=== PATIENT | male | born 1950 | race Caucasian/White ===

== ENCOUNTER 2021-11-30 19:00 | Emergency (ER) | payer MEDICARE ==
[2021-11-30] MEDS ORDERED: TORAdol 30 mg Injection IM ONE (19:40)
--- NOTE | 2021-11-30 19:45 | ERPHSYRPT ---
- History of Present Illness Source: patient Exam Limitations: no limitations Patient Subjective Stated Complaint: pt states he was walking on sidewalk and tripped and fell on left knee. Triage Nursing Assessment: pt is alert and oriented, states pain on l knee 11/26. knee is visibly swollen and pt cannot move knee at joint Physician History: 71 yo WM tripped on uneven sidewalk at 14:00 today while walking. Pt landed on his L knee. Pain is moderate to severe and worse w weight bearing. He denies other injuries at this time. Method of Injury: direct blow (Tripped) Occurred: other (14:00 today) Quality: constant Severity of Pain-Max: severe Severity of Pain-Current: moderate Lower Extremities Pain: knee: left Modifying Factors: Improves With: movement Associated Symptoms: none Allergies/Adverse Reactions: No Known Drug Allergies Allergy (Unverified 11/30/21 19:19) Hx Influenza Vaccination/Date Given: Yes Hx Pneumococcal Vaccination/Date Given: Yes Travel Risk - International Travel Have you traveled outside of the country in past 3 weeks: No - Coronavirus Screening Are you exhibiting any of the following symptoms?: No Close contact with a COVID-19 positive Pt in past 14-21 Days: No - Vaccine Status Have you recieved a Covid-19 vaccination: Yes Hogshead Stripper: Moderna - Vaccination Dates Date of 2cond Vaccination (if applicable): unknown - Review of Systems Constitutional: No Symptoms Eyes: No Symptoms Ears, Nose, & Throat: No Symptoms Respiratory: No Symptoms Cardiac: No Symptoms Abdominal/Gastrointestinal: No Symptoms Genitourinary Symptoms: No Symptoms Skin: No Symptoms Psychological: No Symptoms Endocrine: No Symptoms Hematologic/Lymphatic: No Symptoms Immunological/Allergic: No Symptoms - Past Medical History Neurological History: TIA Cardiac History: Coronary Artery Disease, High Cholesterol, Hypertension, Myocardial Infarction ([place]) Respiratory History: No Pertinent History Endocrine Medical History: Diabetes Type II Musculoskeletal History: Osteoarthritis Other Medical History: 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 CAD WITH MULTIPLE STENT PLACEMENTS X 8 PER PATIENT. LEFT SHOULDER REPLACEMENT 2014. RIGHT ARTHROSCOPIC SURGERY >10 YEARS AGO - Past Surgical History Past Surgical History: Yes Other Surgical History: CAD WITH MULTIPLE STENT PLACEMENTS X 8 PER PATIENT. LEFT SHOULDER REPLACEMENT 2014. RIGHT ARTHROSCOPIC SURGERY >10 YEARS AGO - Social History Smoking Status: Former smoker Drug Use: none - Nursing Vital Signs Nursing Vital Signs: Initial Vital Signs Temperature 97.6 F 11/30/21 19:08 Pulse Rate 74 11/30/21 19:08 Respiratory Rate 18 11/30/21 19:08 Blood Pressure 200/119 11/30/21 19:08 O2 Sat by Pulse Oximetry 98 11/30/21 19:08 Pain Scale Pain Intensity 8 Hypertensive - Physical Exam General Appearance: no apparent distress Eyes, Ears, Nose, Throat Exam: normal ENT inspection, TMs normal, pharynx normal, moist mucous membranes Neck Exam: normal inspection, non-tender (C-spine nttp), supple, full range of motion, No Brudzinski, No Kernig's, No meningismus, No carotid bruit Cardiovascular/Respiratory Exam: chest non-tender, normal breath sounds, regular rate/rhythm, heart sounds normal Gastrointestinal/Abdominal Exam: non-tender, soft, no organomegaly Back Exam: normal inspection, normal range of motion, vertebral tenderness (No T or L-spine TTP), No CVA tenderness Hips Exam: bilateral: non-tender, normal inspection, normal range of motion, no evidence of injury Legs Exam: bilateral leg: non-tender, normal inspection, normal range of motion, no evidence of injury Knees Exam: left knee: pain (Marked edema and TTP L pre-patellar area/Good pedal pulse, distal sensation, and capillary return) Ankle Exam: bilateral ankle: non-tender, normal inspection, normal range of motion, no evidence of injury Foot Exam: bilateral foot: non-tender, normal inspection, normal range of motion, no evidence of injury Neuro/Tendon Exam: normal sensation, normal motor functions, normal tendon functions, responds to pain, no evidence tendon injury, No motor deficit, No sensory deficit Mental Status Exam: alert, oriented x 3, cooperative Skin Exam: normal color, warm, dry, No rash SpO2 Interpretation: normal SpO2: 98 O2 Delivery: Room Air - Course Nursing assessment & vital signs reviewed: Yes - Radiology Exams Knee X-ray Interpretation: Teleradiologist Report (No acute fx) Ordered Tests: Active Orders 24 hr Category Date Time Status Benjamin Bandage Application -[facility] STAT Care 11/30/21 20:23 Completed Cold Application STAT Care 11/30/21 19:14 Completed Crutches STAT Care 11/30/21 20:23 Completed KNEE (3 VIEWS) Stat Exams 11/30/21 19:35 Taken Medication Summary Discontinued Medications Generic Name Dose Route Start Last Admin Trade Name Manjit PRN Reason Stop Dose Admin Ketorolac Tromethamine 15 mg 11/30/21 19:40 11/30/21 19:51 Ketorolac Tromethamine 30 Mg/Ml Inj IM 11/30/21 19:41 15 mg STAT ONE Administration Ketorolac Tromethamine Confirm 11/30/21 19:48 Ketorolac Tromethamine 30 Mg/Ml Inj Administered 11/30/21 19:49 Dose 30 mg .ROUTE .STK-MED ONE - Progress Progress Note: 11/30/21 20:26 15mg IM toradol Crutches per nursing Benjamin wrap L knee per nursing/NVI 11/30/21 20:38 Pt's BP elevated but decreasing upon discharge Pt to f/u in ortho clinic on Friday11/30/21 20:39 Counseled pt/family regarding: diagnosis, need for follow-up, rad results - Departure Departure Disposition: Home Clinical Impression: Contusion of knee, left Condition: Stable Critical Care Time: No Referrals: JANAK CARLSON MD [Primary Care Provider] - Follow up/PCP as directed ORTHO - KENYA LAM NP [NON-STAFF PHY W/O PRIVILEGES] - Follow up/PCP as directed Instructions: Knee Pain (DC) Additional Instructions: Ice for 12-24 hours No weight bearing(Use crutches) Continue with home pain meds as needed Follow up in orthopedic clinic on 12/03 8-10:00AM Return to ER as needed
[2021-11-30] MEDS ORDERED: TORAdol 30 mg Injection ONE (19:48)
[2021-11-30 20:14] VITALS: BP 194/108; PULSE 66
[2021-11-30 20:30] VITALS: O2SAT 98
--- NOTE | 2021-11-30 23:25 | XRAY ---
Indication: Pain and swelling following fall. Comparison: None 3 view left knee obtained. Lateral view limited due to suboptimal positioning. Age-related osteopenia, small posterior fabella, tiny round patella bone islands, anterior soft tissue swelling/hematoma, and diffuse scattered vascular calcifications. No other bony, articular, or soft tissue abnormalities. Comment: Preliminary interpretation made by [facility]. No critical discrepancy.
== END 2021-11-30 20:37 | disposition home or self-care (01) ==
LOC: ED 19:00
DX: M25.562 Pain in left knee (principal); S80.02XA Contusion of left knee, initial encounter; W18.30XA Fall on same level, unspecified, initial encounter; Z20.828 Contact with and (suspected) exposure to other viral communicable diseases
CPT/HCPCS: 73562; 96372; 99283; J1885

== ENCOUNTER 2022-08-17 00:03 | Emergency (ER) | payer MEDICARE ==
--- NOTE | 2022-08-17 00:51 | ERPHSYRPT ---
- History of Present Illness Time Seen by Provider: 08/17/22 00:30 Source: patient, family Exam Limitations: no limitations Patient Subjective Stated Complaint: pt's s/o states that he passed out and fell to the floor, was out for a few minutes before he came to, was clammy and diaphoretic upon waking and vomited. Triage Nursing Assessment: pt alert and oriented, answers questions approp. pt back to room per wheelchair and transfers to stretcher per self. steady gait noted. respirations nonlabored. skin warm and dry at this time. lt pupil uma ctive. rt eye prosthesis. bilat upper and lower ext strength equal and wnl. Physician History: This is a 72-year-old white male who is diabetic and had a syncopal episode, p assed out and found on the floor. The spouse heard him fall and found him on the ground after falling. Patient had a brief loss of consciousness. No seizure activity. Denies chest pain and denies shortness of breath. However, he was clammy and diaphoretic. Patient came from home. His spouse provided independent information and drove him to the emergency department where she stated that he started a new medication, Jardiance 2 weeks ago. Ordinarily, the states, the patient has high blood pressure but in the last several days his blood pressure has been significantly lower. He is still taking his antihypertensive medication. Patient has a history of coronary disease having had cardiac stents in place. He has his prosthetic right I. He has a history of hypertension and hyperlipidemia. He currently denies shortness of breath and denies chest pain. Overall, since he started the Jardiance, the patient has not been feeling well per 's report Timing/Duration: today Severity: mild (To moderate) Character of Deficits: none Deficits: no difficulties Baseline/Normal Cognition: alert oriented x 3 Current Cognition: alert oriented x 3 Baseline Gait: walks w/o assistance Associated Symptoms: loss of consciousness (Brief), weakness Allergies/Adverse Reactions: No Known Drug Allergies Allergy (Verified 08/17/22 00:41) Hx Tetanus, Diphtheria Vaccination/Date Given: Yes Hx Influenza Vaccination/Date Given: Yes Hx Pneumococcal Vaccination/Date Given: Yes Immunizations Up to Date: Yes Travel Risk - International Travel Have you traveled outside of the country in past 3 weeks: No - Coronavirus Screening Are you exhibiting any of the following symptoms?: No Close contact with a COVID-19 positive Pt in past 14-21 Days: No - Vaccine Status Have you recieved a Covid-19 vaccination: Yes Home Care Nurse: Moderna - Vaccination Dates Date of 2cond Vaccination (if applicable): unknown - Review of Systems Constitutional: Weakness Eyes: No Symptoms Ears, Nose, & Throat: No Symptoms Respiratory: No Symptoms Cardiac: No Symptoms Abdominal/Gastrointestinal: Vomiting (Once), No Abdominal Pain, No Nausea, No Diarrhea, No Constipation Genitourinary Symptoms: No Symptoms Musculoskeletal: No Symptoms Skin: No Symptoms Neurological: No Symptoms Psychological: No Symptoms Endocrine: No Symptoms Hematologic/Lymphatic: No Symptoms Immunological/Allergic: No Symptoms All Other Systems: Reviewed and Negative - Past Medical History Pertinent Past Medical History: Yes Neurological History: TIA Cardiac History: Coronary Artery Disease, High Cholesterol, Hypertension, Myocardial Infarction ([place]) Respiratory History: No Pertinent History Endocrine Medical History: Diabetes Type II Musculoskeletal History: Osteoarthritis Other Medical History: 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 CAD WITH MULTIPLE STENT PLACEMENTS X 8 PER PATIENT. LEFT SHOULDER REPLACEMENT 2014. RIGHT ARTHROSCOPIC SURGERY >10 YEARS AGO - Past Surgical History Past Surgical History: Yes Gastrointestinal: Cholecystectomy Musculoskeletal: Orthopedic Surgery Other Surgical History: CAD WITH MULTIPLE STENT PLACEMENTS X 8 PER PATIENT. LEFT SHOULDER REPLACEMENT 2014. RIGHT ARTHROSCOPIC SURGERY >10 YEARS AGO. back surgery - Social History Smoking Status: Former smoker Exposure to second hand smoke: No Drug Use: none Patient Lives Alone: No - Nursing Vital Signs Nursing Vital Signs: Initial Vital Signs Temperature 97.8 F 08/17/22 00:12 Pulse Rate 65 08/17/22 00:12 Respiratory Rate 16 08/17/22 00:12 Blood Pressure 141/92 08/17/22 00:12 O2 Sat by Pulse Oximetry 93 L 08/17/22 00:12 Pain Scale Pain Intensity 0 - Velia Coma Scale Best Eye Response (Norman): (4) open spontaneously Best Verbal Response (Norman): (5) oriented Best Motor Response (Velia): (6) obeys commands Norman Total: 15 - Physical Exam General Appearance: no apparent distress, alert, anxiety Eye Exam: left eye: PERRL (Patient has prosthetic right eye), EOMI (Patient has prosthetic right eye), bilateral eye: normal inspection Ears, Nose, Throat Exam: normal ENT inspection, moist mucous membranes Neck Exam: normal inspection, non-tender, supple, full range of motion Respiratory: normal breath sounds, lungs clear, airway intact, No chest tenderness, No respiratory distress Cardiovascular: regular rate/rhythm, normal heart sounds, normal peripheral pulses Gastrointestinal: soft, normal bowel sounds, No tenderness Rectal Exam: not done Back Exam: normal inspection, normal range of motion, No CVA tenderness, No vertebral tenderness Extremity Exam: normal inspection, normal range of motion, pelvis stable Mental Status: alert, oriented x 3, 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 Patient has a prosthetic right eye) Coordination/Gait: normal finger to nose, normal gait, normal cerebellar function Motor/Sensory: no motor deficit, no sensory deficit, no pronator drift Skin Exam: normal color, warm, dry SpO2 Interpretation: borderline oxygenation SpO2: 93 O2 Delivery: Room Air - Course Nursing assessment & vital signs reviewed: Yes EKG Interpreted by Me: RATE (66), Sinus Rhythm, NORMAL AXIS, LAFB, Right Bundle Branch Block, Other (No acute ischemic changes on today's twelve-lead EKG. There is prolonged ID interval. No comparison twelve-lead EKG available) Ordered Tests: Active Orders 24 hr Category Date Time Status Clean Catch Urine Specimen STAT Care 08/17/22 00:51 Active EKG-ER Only STAT Care 08/17/22 00:51 Active IV Insertion STAT Care 08/17/22 00:51 Active POCT Glucose Check STAT Care 08/17/22 00:51 Active Pulse Oximetry (ED) STAT Care 08/17/22 00:51 Active CERVICAL SPINE WO CONTRAST [CT] Stat Exams 08/17/22 00:52 Taken HEAD WITHOUT CONTRAST [CT] Stat Exams 08/17/22 00:52 Taken CBC W DIFF Stat Lab 08/17/22 01:07 Completed CMP Stat Lab 08/17/22 01:07 Completed ETHYL ALCOHOL Stat Lab 08/17/22 01:07 Completed POCT GLUCOSE Stat Lab 08/17/22 00:34 Completed TROPONIN Q4H Lab 08/17/22 01:07 Completed TROPONIN Q4H Lab 08/17/22 05:00 Ordered TROPONIN Q4H Lab 08/17/22 09:00 Ordered TROPONIN Q4H Lab 08/17/22 13:00 Ordered TROPONIN Q4H Lab 08/17/22 17:00 Ordered TROPONIN Q4H Lab 08/17/22 21:00 Ordered UA W/RFX UR CULTURE Stat Lab 08/17/22 01:18 Completed Urine Triage Profile Stat Lab 08/17/22 01:18 Completed Medication Summary Generic Name Dose Route Start Last Admin Trade Name Manjit PRN Reason Stop Dose Admin Sodium Chloride 1,000 mls @ 100 mls/hr 08/17/22 01:00 08/17/22 01:18 Sodium Chloride 0.9% 1000 Ml IV 09/16/22 00:59 100 mls/hr .Q10H JOANIE Administration Lab/Rad Data: Laboratory Result Diagrams 08/17/22 01:07 08/17/22 01:07 Laboratory Results 08/17/22 08/17/22 08/17/22 Range/Units 01:18 01:18 01:07 WBC (4.0-10.5) x10^3/uL RBC (4.1-5.6) x10^6/uL Hgb (12.5-18.0) g/dL Hct (42-50) % MCV (78-100) fL MCH (26-32) pg MCHC (32-36) g/dL RDW (11.5-14.0) % Plt Count (150-450) x10^3/uL MPV (7.5-11.0) fL Gran % (36.0-66.0) % Immature Gran % (Auto) (0.00-0.4) % Nucleat RBC Rel Count (0.00-0.1) % Eos # (Auto) (0-0.5) x10^3/uL Immature Gran # (Auto) (0.00-0.03) x10^3u/L Absolute Lymphs (auto) (1.0-4.6) x10^3/uL Absolute Monos (auto) (0.0-1.3) x10^3/uL Absolute Nucleated RBC (0.00-0.01) x10^3u/L Lymphocytes % (24.0-44.0) % Monocytes % (0.0-12.0) % Eosinophils % (0.00-5.0) % Basophils % (0.0-0.4) % Absolute Granulocytes (1.4-6.9) x10^3/uL Basophils # (0-0.4) x10^3/uL Sodium (137-145) mmol/L Potassium (3.5-5.1) mmol/L Chloride (98-107) mmol/L Carbon Dioxide (22-30) mmol/L Anion Gap (5-15) MEQ/L BUN (9-20) mg/dL Creatinine (0.66-1.25) mg/dL Estimated GFR ML/MIN Glucose (74-106) mg/dL POC Glucometer (74 to 106) mg/dL Calcium (8.4-10.2) mg/dL Total Bilirubin (0.2-1.3) mg/dL AST (17-59) U/L ALT (0-50) U/L Alkaline Phosphatase (38-126) U/L Troponin I < 0.012 (0.000-0.034) ng/mL Serum Total Protein (6.3-8.2) g/dL Albumin (3.5-5.0) g/dL Urine Color Yellow (Yellow) Urine Appearance Clear (Clear) Urine pH 5.5 (4.6-8.0) Ur Specific [place] 1.025 (1.005-1.030) Urine Protein Negative (Negative) Urine Glucose (UA) >=1000 A (Negative) mg/dL Urine Ketones Negative (Negative) Urine Blood Negative (Negative) Urine Nitrite Negative (Negative) Urine Bilirubin Negative (Negative) Urine Urobilinogen 0.2 (0.2) mg/dL Ur Leukocyte Esterase Negative (Negative) Urine Microscopic RBC 0-2 (0-5) /HPF Urine Microscopic WBC 0-2 (0-5) /HPF Ur Epithelial Cells None Seen (None Seen) /HPF Urine Bacteria None Seen (None Seen) /HPF Urine Culture Reflexed NO (NO) Urine Opiates Level NEGATIVE (NEGATIVE) Ur Methadone NEGATIVE (NEGATIVE) Urine Barbiturates NEGATIVE (NEGATIVE) Ur Phencyclidine (PCP) NEGATIVE (NEGATIVE) Urine Amphetamine NEGATIVE (NEGATIVE) U Benzodiazepine Level NEGATIVE (NEGATIVE) Urine Cocaine NEGATIVE (NEGATIVE) Urine Marijuana (THC) NEGATIVE (NEGATIVE) Ethyl Alcohol (0-10) mg/dL 08/17/22 08/17/22 08/17/22 Range/Units 01:07 01:07 00:34 WBC 10.5 (4.0-10.5) x10^3/uL RBC 4.40 (4.1-5.6) x10^6/uL Hgb 13.4 (12.5-18.0) g/dL Hct 40.9 L (42-50) % MCV 93.0 (78-100) fL MCH 30.5 (26-32) pg MCHC 32.8 (32-36) g/dL RDW 12.7 (11.5-14.0) % Plt Count 226 (150-450) x10^3/uL MPV 11.6 H (7.5-11.0) fL Gran % 58.8 (36.0-66.0) % Immature Gran % (Auto) 0.9 H (0.00-0.4) % Nucleat RBC Rel Count 0.0 (0.00-0.1) % Eos # (Auto) 0.43 (0-0.5) x10^3/uL Immature Gran # (Auto) 0.10 H (0.00-0.03) x10^3u/L Absolute Lymphs (auto) 2.89 (1.0-4.6) x10^3/uL Absolute Monos (auto) 0.81 (0.0-1.3) x10^3/uL Absolute Nucleated RBC 0.00 (0.00-0.01) x10^3u/L Lymphocytes % 27.4 (24.0-44.0) % Monocytes % 7.7 (0.0-12.0) % Eosinophils % 4.1 (0.00-5.0) % Basophils % 1.1 (0.0-0.4) % Absolute Granulocytes 6.18 (1.4-6.9) x10^3/uL Basophils # 0.12 (0-0.4) x10^3/uL Sodium 133 L (137-145) mmol/L Potassium 4.6 (3.5-5.1) mmol/L Chloride 98 (98-107) mmol/L Carbon Dioxide 21 L (22-30) mmol/L Anion Gap 19.8 H (5-15) MEQ/L BUN 40 H (9-20) mg/dL Creatinine 1.45 H (0.66-1.25) mg/dL Estimated GFR 51.0 ML/MIN Glucose 218 H (74-106) mg/dL POC Glucometer 211 H (74 to 106) mg/dL Calcium 9.7 (8.4-10.2) mg/dL Total Bilirubin 0.50 (0.2-1.3) mg/dL AST 39 (17-59) U/L ALT 52 H (0-50) U/L Alkaline Phosphatase 49 (38-126) U/L Troponin I (0.000-0.034) ng/mL Serum Total Protein 8.0 (6.3-8.2) g/dL Albumin 4.4 (3.5-5.0) g/dL Urine Color (Yellow) Urine Appearance (Clear) Urine pH (4.6-8.0) Ur Specific [place] (1.005-1.030) Urine Protein (Negative) Urine Glucose (UA) (Negative) mg/dL Urine Ketones (Negative) Urine Blood (Negative) Urine Nitrite (Negative) Urine Bilirubin (Negative) Urine Urobilinogen (0.2) mg/dL Ur Leukocyte Esterase (Negative) Urine Microscopic RBC (0-5) /HPF Urine Microscopic WBC (0-5) /HPF Ur Epithelial Cells (None Seen) /HPF Urine Bacteria (None Seen) /HPF Urine Culture Reflexed (NO) Urine Opiates Level (NEGATIVE) Ur Methadone (NEGATIVE) Urine Barbiturates (NEGATIVE) Ur Phencyclidine (PCP) (NEGATIVE) Urine Amphetamine (NEGATIVE) U Benzodiazepine Level (NEGATIVE) Urine Cocaine (NEGATIVE) Urine Marijuana (THC) (NEGATIVE) Ethyl Alcohol < 10 (0-10) mg/dL - Progress Progress: improved, re-examined Progress Note: 08/17/22 02:57 CAT scan of the head without contrast shows no acute intracranial abnormality with normal atrophy for patient's age. There is evidence of chronic microvascular ischemic changes. CAT scan of cervical spine without contrast shows no acute fracture or subluxation. There are degenerative changes noted. This patient's medical issue is 1 of moderate complexity. The level complexity and the work-up performed is based on the review of the patient's past medical history, review of the patient's medication list, review of the patient's drug allergies. Review of the patient's new Jardiance medication adverse reactions which includes orthostatic hypotension, history of present illness and physical findings on examination. The the work-up results were reviewed by me and I i nterpreted these results and use them to make the decision of the work-up which includes placement of an intravenous line, infusion of normal saline solution, performing a twelve-lead EKG, troponin level, CBC, CMP, urinalysis and CT scan of the head and neck. There are no acute or emergent medical issues at this time. Patient is clinically improved. Patient is to stop his blood pressure medication until he speaks with his prescribing physician about the symptoms the patient is experiencing and his lower blood pressure readings in the last week since he has been on the new Jardiance medication. Counseled pt/family regarding: lab results, diagnosis, need for follow-up, rad results Medical Desision Making - Independent Historian Additional History obtained from: Spouse - Diagnostic Testing Diagnostic test were ordered, analyzed, and reviewed by me: Yes Radiological Interpretation: Reviewed by me, Teleradiologist Report - Risk of complications Low Risk: Low risk of morbidity from additional dx testing or treatment - Departure Departure Disposition: Home Clinical Impression: Episode of syncope Condition: Stable Critical Care Time: No Referrals: JANAK CARLSON MD [Primary Care Provider] - Follow up/PCP as directed Additional Instructions: Drink plenty fluids. Hold your blood pressure medication until you speak to yo prescribing provider on 08/19/2022 about the new medication, Jardiance, and its side effects on you including lowering your blood pressure and this syncopal episode. Monitor your blood sugar closely.
[2022-08-17] MEDS ORDERED: Sodium Chloride 0.9% 1000 ML 1,000 ML IV SCH (01:00)
[2022-08-17] MEDS ORDERED: Sodium Chloride 0.9% 1000 ML 1,000 ML ONE (01:10)
[2022-08-17 01:12] LABS: Absolute Neutrophil Ct (ANC) 6.18 x10^3/uL (1.4-6.9); BASOPHIL % 1.1 % (0.0-0.4); Basophil (Absolute #) 0.12 x10^3/uL (0-0.4); Eosinophil % 4.1 % (0.00-5.0); Eosinophil (Absolute #) 0.43 x10^3/uL (0-0.5); Hematocrit 40.9 % (42-50); Hemoglobin 13.4 g/dL (12.5-18.0); IMMATURE GRAN % 0.9 % (0.00-0.4); Lymphocyte (Absolute #) 2.89 x10^3/uL (1.0-4.6); Lymphocytes % 27.4 % (24.0-44.0); Mean Corpuscular Hemoglobin 30.5 pg (26-32); Mean Corpuscular Hgb Concent. 32.8 g/dL (32-36); Mean Platelet Volume 11.6 fL (7.5-11.0); Monocyte (Absolute #) 0.81 x10^3/uL (0.0-1.3); Monocytes % 7.7 % (0.0-12.0); Neutrophil % 58.8 % (36.0-66.0); Platelet Count 226 x10^3/uL (150-450); Red Cell Distribution Width 12.7 % (11.5-14.0); White Blood Count 10.5 x10^3/uL (4.0-10.5)
[2022-08-17 01:24] LABS: ALBUMIN 4.4 g/dL (3.5-5.0); ALKALINE PHOSPHATASE 49 U/L (38-126); ANION GAP 19.8 MEQ/L (5-15); BLOOD UREA NITROGEN 40 mg/dL (9-20); CHLORIDE 98 mmol/L (98-107); Calcium 9.7 mg/dL (8.4-10.2); Carbon Dioxide 21 mmol/L (22-30); Creatinine 1 1.45 mg/dL (0.66-1.25); ETHYL ALCOHOL < 10 mg/dL (0-10); Glucose 218 mg/dL (74-106); Potassium 4.6 mmol/L (3.5-5.1); SGOT/AST 39 U/L (17-59); SGPT/ALT 52 U/L (0-50); SODIUM 133 mmol/L (137-145)
[2022-08-17 01:39] LABS: Appearance Clear (Clear); Bilirubin Negative (Negative); Blood Negative (Negative); Glucose, Urine >=1000 mg/dL (Negative); Ketones Negative (Negative); Leukocyte Esterase Negative (Negative); Nitrite Negative (Negative); Ph 5.5 (4.6-8.0); Protein,Urine Dip Negative (Negative); Specific Gravity 1.025 (1.005-1.030); Urobilinogen 0.2 mg/dL (0.2)
[2022-08-17 01:40] LABS: ADD URINE CULTURE? NO (NO); Bacteria None Seen /HPF (None Seen); Epithelial Cells None Seen /HPF (None Seen); RBC 0-2 /HPF (0-5); WBC 0-2 /HPF (0-5)
[2022-08-17 01:51] LABS: Amphetamine,Urine NEGATIVE (NEGATIVE); Barbiturate,Urine NEGATIVE (NEGATIVE); Benzodiazepine,Urine NEGATIVE (NEGATIVE); Cocaine,Urine NEGATIVE (NEGATIVE); Methadone,Urine NEGATIVE (NEGATIVE); Opiate,Urine NEGATIVE (NEGATIVE); PCP,Urine NEGATIVE (NEGATIVE); THC,Urine NEGATIVE (NEGATIVE)
--- NOTE | 2022-08-17 03:02 | XRAY ---
CLINICAL HISTORY:Fall injury COMPARISON:None. TECHNIQUES:Contiguous, multislice, non-enhanced CT scan of the cervical spine in the axial plane with multiplanar reconstruction was performed. FINDINGS: Reduced cervical lordotic curve suggestive of muscle spasm. Normal CT appearance of the craniocervical junction. No vertebral wedging or collapse. Preserved spinal canal with no retropulsed fragments. Degenerative osseous changes but no suspicious focal bone lesions. Marginal osteophytes with narrowed C3-C4, C5-C6 and C6-C7 cervical disks, most prominent at C5-C6 level. At C2-C3, C4-C5 there is mild disc bulge centrally compressing the thecal sac and indenting lateral recesses. At C3-C4, there is posterior disc bulge compressing the thecal sac and encroaching upon lateral recesses and neural foramina. At C5-C6, C6-C7 levels, there is a posterior osteophyte disc complex compressing the thecal sac and encroaching upon lateral recesses and neural foramina. Facet joint arthritic changes at multiple levels, most prominent at C2-C3, and C6-C7 levels. Atlantodental osteoarthritic changes. Disc calcification at C6-C7. No paraspinal masses or collections. IMPRESSION: 1. Trauma patient with no related significant spinal injury. 2. Neck muscle spasm. 3. Cervical spondylo- degenerative changes with marginal osteophytes and multilevel degenerated discs, more at C6-C7 disc as described. MRI is suggested for further evaluation if clinically needed. 4. Facet joint arthritic changes at multiple levels, most prominent at C2-C3, and C6-C7 levels. Electronically Signed by: Felton Garcia MD. 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
--- NOTE | 2022-08-17 03:05 | XRAY ---
CLINICAL HISTORY:Fall injury COMPARISON:None. TECHNIQUES:Non-enhanced CT scan of the brain in axial plane with multiplanar reconstruction was performed in bony and soft tissue windows. FINDINGS: Mild age-related cerebral atrophic changes are noted. Periventricular white matter hypodensities in keeping with chronic microvascular ischemic changes. No suspicious space-occupying lesions. No intra or extra-axial collections of fresh blood density. Bilateral basal ganglia calcifications noted. Thalamus and internal capsule appear normal. Brainstem and mindi appear normal. No shift of midline structures. Unremarkable posterior fossa. Largely preserved cranial calvarial bones. Visualized paranasal sinuses appear clear. High density rounded structure replacing the right eye globe representing prosthetic right eye. IMPRESSION: 1. No acute intracranial abnormality. 2. Age-matched cerebral atrophic changes. 3. Periventricular white matter hypodensities in keeping with chronic microvascular disease. Electronically Signed by: Felton Garcia MD. 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
[2022-08-17 04:06] VITALS: BP 113/71; PULSE 67; O2SAT 94
== END 2022-08-17 04:31 | disposition home or self-care (01) ==
LOC: ED 00:03
DX: R55 Syncope and collapse (principal); E11.9 Type 2 diabetes mellitus without complications; I10 Essential (primary) hypertension; E78.5 Hyperlipidemia, unspecified; Z79.84 Long term (current) use of oral hypoglycemic drugs
CPT/HCPCS: 36000; 36415; 70450; 72125; 80053; 80307; 81001; 82077; 82947; 84484; 85025; 93005; 94760; 96360; 96361; 99284

== ENCOUNTER 2024-04-03 17:56 | Emergency (ER) | payer MEDICARE ==
[2024-04-03 18:03] VITALS: TEMP 98.8
[2024-04-03] MEDS ORDERED: DUONEB 0.5-3 MG/3 ml Neb IH ONE (18:12)
[2024-04-03] MEDS: DUONEB 0.5-3 MG/3 ml Neb IH ONE (18:14)
--- NOTE | 2024-04-03 18:18 | ERPHSYRPT ---
- History of Present Illness Time Seen by Provider: 04/03/24 17:59 Source: patient, family Exam Limitations: no limitations Patient Subjective Stated Complaint: PT HERE FOR COUGH, COLD, POSSIBLE FEVER FOR A COUPLE DAYS NOW, Triage Nursing Assessment: PT ALERT, WALKED IN, RESP EASY, SKIN W/D/P. OCC COUGH, MOVES ALL EXT WELL Physician History: 73 years old male with multiple medical problems including coronary artery di sease with stenting,, sick sinus syndrome with pacemaker placement, hypertension, hyperlipidemia, diabetes mellitus presented in the ER with 2 to 3 days history of sinus/nasal congestion, minimal productive cough, subjective feeling of fever chills, aches and pains all over. Nausea but no vomiting. Positive contact with other family members with similar symptoms. Allergies/Adverse Reactions: No Known Drug Allergies Allergy (Verified 04/03/24 17:59) Hx Tetanus, Diphtheria Vaccination/Date Given: Yes Hx Influenza Vaccination/Date Given: Yes Hx Pneumococcal Vaccination/Date Given: Yes Immunizations Up to Date: Yes Travel Risk - International Travel Have you traveled outside of the country in past 3 weeks: No - Emerging Infectious Disease Are you exhibiting symptoms associated with any current EIDs: Yes Symptoms: Cough: New Onset, Fever - Review of Systems Constitutional: Fever, Chills, Fatigue, Weakness Eyes: No Symptoms Ears, Nose, & Throat: Nose Congestion, Throat Swelling Respiratory: Cough Cardiac: No Symptoms Abdominal/Gastrointestinal: Nausea Genitourinary Symptoms: No Symptoms Musculoskeletal: Myalgias Skin: No Symptoms Neurological: Headache Psychological: No Symptoms Endocrine: No Symptoms Hematologic/Lymphatic: No Symptoms - Past Medical History Pertinent Past Medical History: Yes Neurological History: TIA Cardiac History: Coronary Artery Disease, High Cholesterol, Hypertension, Myocardial Infarction ([place]) Respiratory History: No Pertinent History Endocrine Medical History: Diabetes Type II Musculoskeletal History: Osteoarthritis Other Medical History: 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 CAD WITH MULTIPLE STENT PLACEMENTS X 8 PER PATIENT. LEFT SHOULDER REPLACEMENT 2014. RIGHT ARTHROSCOPIC SURGERY >10 YEARS AGO - Past Surgical History Past Surgical History: Yes Cardiac: Cardiac Catheterization, Cardiac Stent, Pacemaker Gastrointestinal: Cholecystectomy Musculoskeletal: Orthopedic Surgery Other Surgical History: CAD WITH MULTIPLE STENT PLACEMENTS X 8 PER PATIENT. LEFT SHOULDER REPLACEMENT 2014. RIGHT ARTHROSCOPIC SURGERY >10 YEARS AGO. back surgery - Social History Smoking Status: Former smoker Exposure to second hand smoke: No Drug Use: none - Social Determinants of Health Will the patient participate in the screening: Declined to provide - Nursing Vital Signs Nursing Vital Signs: Initial Vital Signs Pulse Rate 66 04/03/24 18:00 Respiratory Rate 17 04/03/24 18:00 Blood Pressure 114/97 04/03/24 18:00 O2 Sat by Pulse Oximetry 98 04/03/24 18:00 Pain Scale Pain Intensity 7 - Physical Exam General Appearance: no apparent distress, alert Eye Exam: PERRL/EOMI Ears, Nose, Throat Exam: moist mucous membranes, pharyngeal erythema Neck Exam: normal inspection, non-tender, supple, full range of motion Respiratory Exam: normal breath sounds, lungs clear, No respiratory distress Cardiovascular Exam: regular rate/rhythm, normal heart sounds Gastrointestinal/Abdomen Exam: soft, normal bowel sounds, No tenderness Extremity Exam: normal inspection, normal range of motion Neurologic Exam: alert, oriented x 3, cooperative Skin Exam: normal color SpO2 Interpretation: normal SpO2: 99 O2 Delivery: Room Air - Course EKG Interpreted by Me: RATE (67 paced rhythm, right axis deviation, no ST elevations or depressions.) Ordered Tests: Active Orders 24 hr Category Date Time Status Binder Layer STAT Care 04/03/24 18:01 Active EKG-ER Only STAT Care 04/03/24 18:00 Active IV Insertion STAT Care 04/03/24 18:00 Active CHEST 1 VIEW (PORTABLE) Stat Exams 04/03/24 18:01 Taken BLOOD CULTURE Stat Lab 04/03/24 18:49 Ordered CBC W DIFF Stat Lab 04/03/24 18:20 Completed CMP Stat Lab 04/03/24 18:49 Completed Lactic Acid Stat Lab 04/03/24 18:00 Completed MAGNESIUM Stat Lab 04/03/24 18:49 Completed NT PRO BNPII Stat Lab 04/03/24 18:49 Completed TROPONIN Q4H Lab 04/03/24 18:49 Completed TROPONIN Q4H Lab 04/03/24 22:00 Ordered TROPONIN Q4H Lab 04/04/24 02:00 Ordered UA W/RFX UR CULTURE Stat Lab 04/03/24 19:36 Completed Respiratory Therapy Assessment DAILY RT 04/03/24 18:19 Active Medication Summary Generic Name Dose Route Start Last Admin Trade Name Freq PRN Reason Stop Dose Admin Sodium Chloride 500 mls @ 500 mls/hr 04/03/24 19:38 04/03/24 19:45 Sodium Chloride 0.9% 500 Ml IV 04/03/24 20:37 Not Given .Q1H ONE Discontinued Medications Generic Name Dose Route Start Last Admin Trade Name Manjit PRN Reason Stop Dose Admin Albuterol/Ipratropium 3 ml 04/03/24 18:00 04/03/24 18:14 Ipratropium/Albuterol Sulfate 3 Ml Ampul.Neb IH 04/03/24 18:01 3 ml STAT ONE Administration Albuterol/Ipratropium Confirm 04/03/24 18:12 Ipratropium/Albuterol Sulfate 3 Ml Ampul.Neb Administered 04/03/24 18:13 Dose 3 ml IH .STK-MED ONE Aspirin 324 mg 04/03/24 18:01 04/03/24 18:43 Aspirin 81 Mg Tab.Chew PO 04/03/24 18:02 324 mg STAT ONE Administration Aspirin Confirm 04/03/24 18:38 Aspirin 81 Mg Tab.Chew Administered 04/03/24 18:39 Dose 324 mg .ROUTE .STK-MED ONE Oseltamivir Phosphate 75 mg 04/03/24 19:38 04/03/24 19:44 Oseltamivir 75 Mg Cap PO 04/03/24 19:39 75 mg STAT ONE Administration Oseltamivir Phosphate Confirm 04/03/24 19:43 Oseltamivir 75 Mg Cap Administered 04/03/24 19:44 Dose 75 mg PO .STK-MED ONE Lab/Rad Data: Laboratory Result Diagrams 04/03/24 18:20 04/03/24 18:49 Laboratory Results 04/03/24 04/03/24 04/03/24 Range/Units 19:36 18:49 18:49 WBC (4.23-9.07) x10^3/uL RBC (4.63-6.08) x10^6/uL Hgb (13.7-17.5) g/dL Hct (40.1-51.0) % MCV (79.0-92.2) fL MCH (25.7-32.2) pg MCHC (32.3-36.5) g/dL RDW (11.6-14.4) % Plt Count (163-337) x10^3/uL MPV (9.4-12.4) fL Gran % (34.0-67.9) % Immature Gran % (Auto) (0.001-0.429) % Nucleat RBC Rel Count (0.00-0.2) % Eos # (Auto) (0.04-0.54) x10^3/uL Immature Gran # (Auto) (0.001-0.031) x10^3u/L Absolute Lymphs (auto) (1.32-3.57) x10^3/uL Absolute Monos (auto) (0.30-0.82) x10^3/uL Absolute Nucleated RBC (0.00-0.012) x10^3u/L Lymphocytes % (21.8-53.1) % Monocytes % (5.3-12.2) % Eosinophils % (0.8-7.0) % Basophils % (0.2-1.2) % Absolute Granulocytes (1.78-5.38) x10^3/uL Basophils # (0.01-0.08) x10^3/uL Sodium (135-145) mmol/L Potassium (3.5-5.1) mmol/L Chloride (98-107) mmol/L Carbon Dioxide (22-30) mmol/L Anion Gap (5-15) MEQ/L BUN (9-20) mg/dL Creatinine (0.66-1.25) mg/dL Estimated GFR ML/MIN Glucose (74-106) mg/dL Lactic Acid (0.4-2.0) Calcium (8.4-10.2) mg/dL Magnesium (1.6-2.3) mg/dL Total Bilirubin (0.2-1.3) mg/dL AST (17-59) U/L ALT (0-50) U/L Alkaline Phosphatase (38-126) U/L Troponin I (0.000-0.033) ng/mL NT-Pro-B Natriuret Pep 396 (<300) pg/mL Serum Total Protein (6.3-8.2) g/dL Albumin (3.5-5.0) g/dL Urine Color Yellow (Yellow) Urine Appearance Clear (Clear) Urine pH 6.5 (4.6-8.0) Ur Specific [place] 1.025 (1.005-1.030) Urine Protein Negative (Negative) Urine Glucose (UA) >=1000 A (Negative) mg/dL Urine Ketones Negative (Negative) Urine Blood Negative (Negative) Urine Nitrite Negative (Negative) Urine Bilirubin Negative (Negative) Urine Urobilinogen 0.2 (0.2) mg/dL Ur Leukocyte Esterase Negative (Negative) U Hyaline Cast (Auto) NONE SEEN (0-2) /LPF Urine Microscopic RBC 0-2 (0-5) /HPF Urine Microscopic WBC 0-2 (0-5) /HPF Ur Epithelial Cells None Seen (None Seen) /HPF Urine Bacteria None Seen (None Seen) /HPF Urine Culture Reflexed NO (NO) Influenza Type A Ag POSITIVE A (NEGATIVE) Influenza Type B Ag NEGATIVE (NEGATIVE) RSV (PCR) NEGATIVE (NEGATIVE) SARS-CoV-2 (PCR) NEGATIVE (NEGATIVE) 04/03/24 04/03/24 04/03/24 Range/Units 18:49 18:20 18:00 WBC 10.4 H (4.23-9.07) x10^3/uL RBC 4.60 L (4.63-6.08) x10^6/uL Hgb 13.8 (13.7-17.5) g/dL Hct 41.2 (40.1-51.0) % MCV 89.6 (79.0-92.2) fL MCH 30.0 (25.7-32.2) pg MCHC 33.5 (32.3-36.5) g/dL RDW 13.0 (11.6-14.4) % Plt Count 190 (163-337) x10^3/uL MPV 11.2 (9.4-12.4) fL Gran % 79.1 H (34.0-67.9) % Immature Gran % (Auto) 0.9 H (0.001-0.429) % Nucleat RBC Rel Count 0.0 (0.00-0.2) % Eos # (Auto) 0.26 (0.04-0.54) x10^3/uL Immature Gran # (Auto) 0.09 H (0.001-0.031) x10^3u/L Absolute Lymphs (auto) 0.61 L (1.32-3.57) x10^3/uL Absolute Monos (auto) 1.13 H (0.30-0.82) x10^3/uL Absolute Nucleated RBC 0.00 (0.00-0.012) x10^3u/L Lymphocytes % 5.9 L (21.8-53.1) % Monocytes % 10.9 (5.3-12.2) % Eosinophils % 2.5 (0.8-7.0) % Basophils % 0.7 (0.2-1.2) % Absolute Granulocytes 8.21 H (1.78-5.38) x10^3/uL Basophils # 0.07 (0.01-0.08) x10^3/uL Sodium 135 (135-145) mmol/L Potassium 4.4 (3.5-5.1) mmol/L Chloride 98 (98-107) mmol/L Carbon Dioxide 21 L (22-30) mmol/L Anion Gap 20.2 H (5-15) MEQ/L BUN 15 (9-20) mg/dL Creatinine 1.14 (0.66-1.25) mg/dL Estimated GFR 68.3 ML/MIN Glucose 316 H (74-106) mg/dL Lactic Acid 2.8 H (0.4-2.0) Calcium 9.7 (8.4-10.2) mg/dL Magnesium 2.0 (1.6-2.3) mg/dL Total Bilirubin 0.60 (0.2-1.3) mg/dL AST 69 H (17-59) U/L ALT 73 H (0-50) U/L Alkaline Phosphatase 55 (38-126) U/L Troponin I < 0.012 (0.000-0.033) ng/mL NT-Pro-B Natriuret Pep (<300) pg/mL Serum Total Protein 8.4 H (6.3-8.2) g/dL Albumin 5.2 H (3.5-5.0) g/dL Urine Color (Yellow) Urine Appearance (Clear) Urine pH (4.6-8.0) Ur Specific [place] (1.005-1.030) Urine Protein (Negative) Urine Glucose (UA) (Negative) mg/dL Urine Ketones (Negative) Urine Blood (Negative) Urine Nitrite (Negative) Urine Bilirubin (Negative) Urine Urobilinogen (0.2) mg/dL Ur Leukocyte Esterase (Negative) U Hyaline Cast (Auto) (0-2) /LPF Urine Microscopic RBC (0-5) /HPF Urine Microscopic WBC (0-5) /HPF Ur Epithelial Cells (None Seen) /HPF Urine Bacteria (None Seen) /HPF Urine Culture Reflexed (NO) Influenza Type A Ag (NEGATIVE) Influenza Type B Ag (NEGATIVE) RSV (PCR) (NEGATIVE) SARS-CoV-2 (PCR) (NEGATIVE) - Progress Progress: re-examined Air Movement: good Progress Note: 04/03/24 20:00 73 years old with multiple medical problems including CAD with stenting, hypertension, sick sinus syndrome with pacemaker, diabetes mellitus is evaluated in the ER for flulike symptoms. Patient is afebrile, not in any distress, has few wheezing, given neb treatment feeling better on reevaluation. Workup showed white count of 10, chemistries with a gap of 20, glucose in 360s with negative ketones in the urine. EKG is paced rhythm of with negative troponins. Chest x-ray no acute infiltrative process/consolidation reviewed by me, official report is pending. Stable renal function with a creatinine of 1.1, has a lactate of 2.8, I recommended fluids to help with lactate and dehydration with elevated hyperglycemia and also insulin which patient and does not wanted. They want prescription for Tamiflu and would like to go home. They do understand the risk of leaving without fluids and insulin which could go worse but she would give him an extra dose of antidiabetic medication and will increase hydration. He would do outpatient follow-up. Blood Culture(s) Obtained: Yes Antibiotics given: No Counseled pt/family regarding: lab results, diagnosis, need for follow-up, rad results Medical Desision Making - Diagnostic Testing Diagnostic test were ordered, analyzed, and reviewed by me: Yes Radiological Interpretation: Interpreted by me, Reviewed by me - Risk of complications The pt has a mod risk of morbidity or mortality based on: Need for prescription drug management - Departure Departure Disposition: Home Clinical Impression: Influenza A, Hyperglycemia, Dehydration Condition: Stable Critical Care Time: No Referrals: JANAK CARLSON MD [Primary Care Provider] - Follow up with PCP 1 day Instructions: Cough, Adult (DC), Flu in adults - ED discharge instructions Prescriptions: Albuterol Sulfate [Albuterol Sulfate Hfa] 8.5 gm IH Q6H PRN 7 Days #1 inh PRN Reason: Cough Oseltamivir 75 mg [Tamiflu 75MG Capsule] 75 mg PO BID #10 cap
[2024-04-03 18:30] LABS: Absolute Neutrophil Ct (ANC) 8.21 x10^3/uL (1.78-5.38); BASOPHIL % 0.7 % (0.2-1.2); Basophil (Absolute #) 0.07 x10^3/uL (0.01-0.08); Eosinophil % 2.5 % (0.8-7.0); Eosinophil (Absolute #) 0.26 x10^3/uL (0.04-0.54); Hematocrit 41.2 % (40.1-51.0); Hemoglobin 13.8 g/dL (13.7-17.5); IMMATURE GRAN # 0.09 x10^3u/L (0.001-0.031); IMMATURE GRAN % 0.9 % (0.001-0.429); Lymphocyte (Absolute #) 0.61 x10^3/uL (1.32-3.57); Lymphocytes % 5.9 % (21.8-53.1); Mean Cell Volume 89.6 fL (79.0-92.2); Mean Corpuscular Hgb Concent. 33.5 g/dL (32.3-36.5); Mean Platelet Volume 11.2 fL (9.4-12.4); Monocyte (Absolute #) 1.13 x10^3/uL (0.30-0.82); Monocytes % 10.9 % (5.3-12.2); Neutrophil % 79.1 % (34.0-67.9); Platelet Count 190 x10^3/uL (163-337); White Blood Count 10.4 x10^3/uL (4.23-9.07)
[2024-04-03] MEDS ORDERED: BABY ASPIRIN 81 MG CHEW ONE (18:38)
[2024-04-03] MEDS: BABY ASPIRIN 81 MG CHEW PO ONE (18:43)
[2024-04-03 19:11] VITALS: PULSE 70
[2024-04-03 19:12] VITALS: BP 146/94
[2024-04-03 19:22] LABS: ALBUMIN 5.2 g/dL (3.5-5.0); ALKALINE PHOSPHATASE 55 U/L (38-126); ANION GAP 20.2 MEQ/L (5-15); BLOOD UREA NITROGEN 15 mg/dL (9-20); CHLORIDE 98 mmol/L (98-107); Calcium 9.7 mg/dL (8.4-10.2); Carbon Dioxide 21 mmol/L (22-30); Creatinine 1 1.14 mg/dL (0.66-1.25); EST GLOMERULAR FILTRATION RATE 68.3 ML/MIN; Glucose 316 mg/dL (74-106); Potassium 4.4 mmol/L (3.5-5.1); SGOT/AST 69 U/L (17-59); SGPT/ALT 73 U/L (0-50); SODIUM 135 mmol/L (135-145); TROPONIN < 0.012 ng/mL (0.000-0.033); Total Protein 8.4 g/dL (6.3-8.2)
[2024-04-03 19:29] LABS: INFLUENZA B NEGATIVE (NEGATIVE); RESPIRATORY SYNCTIAL VIRUS NEGATIVE (NEGATIVE); SARS-CoV-2 Xpert Express NEGATIVE (NEGATIVE)
[2024-04-03 19:35] LABS: INFLUENZA A POSITIVE (NEGATIVE)
[2024-04-03] MEDS ORDERED: Tamiflu 75MG Capsule PO ONE (19:43)
[2024-04-03] MEDS: Tamiflu 75MG Capsule PO ONE (19:44)
[2024-04-03] MEDS: Sodium Chloride 0.9% 500 ML 500 ML IV ONE (19:45)
[2024-04-03 19:52] LABS: Appearance Clear (Clear); Bacteria None Seen /HPF (None Seen); Bilirubin Negative (Negative); Blood Negative (Negative); Epithelial Cells None Seen /HPF (None Seen); Glucose, Urine >=1000 mg/dL (Negative); Hyaline Casts NONE SEEN /LPF (0-2); Ketones Negative (Negative); Leukocyte Esterase Negative (Negative); Nitrite Negative (Negative); Ph 6.5 (4.6-8.0); Protein,Urine Dip Negative (Negative); RBC 0-2 /HPF (0-5); Specific Gravity 1.025 (1.005-1.030); Urobilinogen 0.2 mg/dL (0.2); WBC 0-2 /HPF (0-5)
--- NOTE | 2024-04-03 20:03 | XRAY ---
CLINICAL HISTORY: cough COMPARISON: None. TECHNIQUE: X-ray images of the chest were obtained in AP portable projections. FINDINGS: Pulmonary Parenchyma: Bilateral mild prominent bronchovascular markings and suspected infiltrates may denote mild congestive changes, however inflammatory/infectious changes coud not be excluded. No evidence of pleural effusion or pleural thickening. Heart and Mediastinum: Mild cardiomegaly, with congested both hilar regions. Triple lead pacemaker in place Bony Thorax: Bony degenerative changes, with left shoulder arthroplasty Soft Tissues: Soft tissues overlying the chest wall are unremarkable. IMPRESSION: Bilateral mild prominent bronchovascular markings and cardiomegaly may denote congestive changes, however mild inflammatory/infectious changes coud not be excluded, Correlate clinically. Electronically Signed by: Felton Garcia MD. (04/03/2024 19:58:01 EST)
[2024-04-03 20:06] VITALS: RESP 16; O2SAT 99
== END 2024-04-03 20:05 | disposition home or self-care (01) ==
LOC: ED 17:56
DX: J10.1 Influenza due to other identified influenza virus with other respiratory manifestations (principal); E11.65 Type 2 diabetes mellitus with hyperglycemia; E86.0 Dehydration; R05.1 Acute cough; R09.81 Nasal congestion; M79.10 Myalgia, unspecified site; I10 Essential (primary) hypertension; E78.5 Hyperlipidemia, unspecified; Z79.899 Other long term (current) drug therapy
CPT/HCPCS: 0241U; 36415; 71045; 80053; 81001; 83605; 83735; 83880; 84484; 85025; 87040; 93005; 93041; 94640; 99285; 99284; A9270-GY

== ENCOUNTER 2024-12-03 17:11 | Emergency (ER) | payer MEDICARE ==
[2024-12-03 17:28] VITALS: TEMP 97.6
--- NOTE | 2024-12-03 17:29 | ERPHSYRPT ---
- History of Present Illness Time Seen by Provider: 12/03/24 17:28 Source: patient, family Exam Limitations: no limitations Patient Subjective Stated Complaint: c/o abnormal labs Triage Nursing Assessment: patient brought to ED by with c/o abnormal labs. patient saw his doctor this morning in [place] and received a call to come to the ED for his lab levels. he has a low blood count per Dr. Powers, patient states he has felt dizzy several times a day for the last three weeks. vitals wnl, afebrile, skin w/n/d, gait steady, doesn't appear to be in any distress at this time. Physician History: This is a 74-year-old white male patient arrives by private vehicle. In the last few weeks the patient has had increasing weakness and dizziness. He was seen by his primary care provider earlier today and they agata hemoglobin level which apparently was low. The patient's spouse states that within the week the patient had a hemoglobin level of 13.5 and it dropped to a level of approximately 9 on today's lab. He was told to go immediately to the emergency department to be evaluated. Patient has had syncopal episodes in the past, weakness and low hemoglobin levels. Patient is on Plavix. He has had TIAs in the past he also has coronary artery stents and a pacemaker in place. He is diabetic and has a history of hypertension, depression and hyperlipidemia. In review of this patient's hemoglobin levels here at our facility, hemoglobin of 9 is significantly low for him. He tends to run around 13-13.7. Patient denies chest pain. Patient denies shortness of breath unless he is ambulating. Patient states he gets weak and dizzy even taking 2 or 3 steps within the last several days. He has not noticed any active bleeding. Timing/Duration: today Severity: moderate Modifying Factors: Improves With: other (Walking around worsens his symptoms) Associated Symptoms: shortness of breath (With ambulation), weakness, other (Dizzy when ambulating), No chest pain Allergies/Adverse Reactions: No Known Drug Allergies Allergy (Verified 12/03/24 17:27) Home Medications: Amlodipine Besylate 5 mg [Norvasc 5 mg] 10 mg PO DAILY 09/27/24 [History] Atorvastatin Calcium [Lipitor 40Mg] 40 mg PO HS 09/27/24 [History] Clopidogrel Bisulfate [Clopidogrel] 75 mg PO DAILY 09/27/24 [History] Empagliflozin [Jardiance] 25 mg PO DAILY 09/27/24 [History] Escitalopram Oxalate [Lexapro] 5 mg PO DAILY 09/27/24 [History] Etodolac 500 mg PO BID 09/27/24 [History] Hydrochlorothiazide 25 mg [hydroDIURIL 25 MG] 25 mg PO DAILY 09/27/24 [History] Lisinopril 20 mg [Zestril 20 MG] 40 mg PO DAILY 09/27/24 [History] Metformin HCl 500 mg [Glucophage 500 MG] 500 mg PO BIDWM 09/27/24 [History] Nebivolol HCl 5 MG [Bystolic 5 MG] 20 mg PO DAILY 09/27/24 [History] Nitroglycerin 0.4 mg Tablet [Nitrostat 0.4 MG Tablet] 0.4 mg SL UD 09/27/24 [History] Semaglutide [Ozempic] 0.25 mg SQ WEEKLY 09/27/24 [History] Tamsulosin HCl 0.4 mg PO HS 09/27/24 [History] Tramadol HCl 50 mg [Ultram 50 mg] 50 mg PO TID 09/27/24 [History] Hx Tetanus, Diphtheria Vaccination/Date Given: Yes Hx Influenza Vaccination/Date Given: No Hx Pneumococcal Vaccination/Date Given: Yes Travel Risk - International Travel Have you traveled outside of the country in past 3 weeks: No - Emerging Infectious Disease Are you exhibiting symptoms associated with any current EIDs: No Symptoms: Fever, Headaches/Body Aches/, Vomitting - Review of Systems Constitutional: Weakness Eyes: No Symptoms Ears, Nose, & Throat: No Symptoms Respiratory: Dyspnea on Exertion (LUNA) (Only) Cardiac: No Symptoms, No Chest Pain Abdominal/Gastrointestinal: No Symptoms Genitourinary Symptoms: No Symptoms Musculoskeletal: No Symptoms Skin: No Symptoms Neurological: Dizziness (Right ambulating) Psychological: No Symptoms Endocrine: No Symptoms Hematologic/Lymphatic: No Symptoms Immunological/Allergic: No Symptoms All Other Systems: Reviewed and Negative - Past Medical History Pertinent Past Medical History: Yes Neurological History: TIA ENT History: Cataracts Cardiac History: Coronary Artery Disease, High Cholesterol, Hypertension, Myocardial Infarction ([place]) Respiratory History: No Pertinent History Endocrine Medical History: Diabetes Type II Musculoskeletal History: Osteoarthritis GI Medical History: No Pertinent History History: No Pertinent History Psycho-Social History: No Pertinent History Male Reproductive Disorders: No Pertinent History Other Medical History: 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 CAD WITH MULTIPLE STENT PLACEMENTS X 8 PER PATIENT. LEFT SHOULDER REPLACEMENT 2014. RIGHT ARTHROSCOPIC SURGERY >10 YEARS AGO - Past Surgical History Past Surgical History: Yes Neuro Surgical History: No Pertinent History Cardiac: Cardiac Catheterization, Cardiac Stent, Pacemaker Respiratory: No Pertinent History Gastrointestinal: Cholecystectomy Genitourinary: No Pertinent History Musculoskeletal: Orthopedic Surgery Male Surgical History: No Pertinent History Other Surgical History: CAD WITH MULTIPLE STENT PLACEMENTS X 8 PER PATIENT. LEFT SHOULDER REPLACEMENT 2014. RIGHT ARTHROSCOPIC SURGERY >10 YEARS AGO. back surgery Significant Family History: no pertinent family hx - Social History Smoking Status: Former smoker Exposure to second hand smoke: No Drug Use: none - Social Determinants of Health Will the patient participate in the screening: Declined to provide - Nursing Vital Signs Nursing Vital Signs: Initial Vital Signs Temperature 97.6 F 12/03/24 17:20 Pulse Rate 76 12/03/24 17:20 Respiratory Rate 17 12/03/24 17:20 Blood Pressure 115/78 12/03/24 17:20 O2 Sat by Pulse Oximetry 96 12/03/24 17:20 Pain Scale Pain Intensity 5 - Physical Exam General Appearance: no apparent distress, alert Eye Exam: PERRL/EOMI, eyes nml inspection Ears, Nose, Throat Exam: normal ENT inspection, moist mucous membranes Neck Exam: normal inspection, non-tender, supple, full range of motion Respiratory Exam: normal breath sounds, lungs clear, airway intact, No chest tenderness, No respiratory distress Cardiovascular Exam: regular rate/rhythm, normal heart sounds, normal peripheral pulses Gastrointestinal/Abdomen Exam: soft, normal bowel sounds, No tenderness Rectal Exam: not done Back Exam: normal inspection, normal range of motion, No CVA tenderness, No vertebral tenderness Extremity Exam: normal inspection, normal range of motion, pelvis stable Neurologic Exam: alert, oriented x 3, cooperative, street photographer II-XII nml as tested, normal mood/affect, nml cerebellar function, nml station & gait, sensation nml Skin Exam: normal color, warm, dry Lymphatic Exam: No adenopathy SpO2 Interpretation: normal SpO2: 96 O2 Delivery: Room Air - Course Nursing assessment & vital signs reviewed: Yes EKG Interpreted by Me: RATE (73), Sinus Rhythm, NORMAL AXIS, Right Bundle Branch Block, Other (Prolonged ND interval. QTc is 486. No acute ischemia) Ordered Tests: Active Orders 24 hr Category Date Time Status International Relations Teacher STAT Care 12/03/24 18:04 Active EKG-ER Only STAT Care 12/03/24 18:03 Active IV Insertion STAT Care 12/03/24 18:03 Active Pulse Oximetry (ED) STAT Care 12/03/24 18:03 Active HEAD WITHOUT CONTRAST [CT] Stat Exams 12/03/24 19:39 Taken CBC W DIFF Stat Lab 12/03/24 18:00 Completed CMP Stat Lab 12/03/24 18:00 Completed PROTIME WITH INR Stat Lab 12/03/24 18:00 Completed UA W/RFX UR CULTURE Stat Lab 12/03/24 19:59 Completed Medication Summary Generic Name Dose Route Start Last Admin Trade Name Freq PRN Reason Stop Dose Admin Sodium Chloride 1,000 mls @ 125 mls/hr 12/03/24 20:31 12/03/24 20:47 Sodium Chloride 0.9% 1000 Ml IV 12/04/24 04:30 125 mls/hr .Q8H STA Administration Discontinued Medications Generic Name Dose Route Start Last Admin Trade Name Freq PRN Reason Stop Dose Admin Hydromorphone HCl 0.5 mg 12/03/24 19:19 12/03/24 19:22 Hydromorphone 1 Mg/1ml Inj IM 12/03/24 19:20 Not Given STAT ONE Sodium Chloride Confirm 12/03/24 20:36 Sodium Chloride 0.9% 1000 Ml Administered 12/03/24 20:37 Dose 1,000 mls @ ud .ROUTE .STK-MED ONE Ondansetron HCl 4 mg 12/03/24 19:20 12/03/24 19:22 Zofran 4 Mg/Udtablet Orally Disintegrating PO 12/03/24 19:21 Not Given STAT ONE Lab/Rad Data: Laboratory Result Diagrams 12/03/24 18:00 12/03/24 18:00 Laboratory Results 12/03/24 12/03/24 12/03/24 Range/Units 19:59 19:20 18:00 WBC (4.23-9.07) x10^3/uL RBC (4.63-6.08) x10^6/uL Hgb (13.7-17.5) g/dL Hct (40.1-51.0) % MCV (79.0-92.2) fL MCH (25.7-32.2) pg MCHC (32.3-36.5) g/dL RDW (11.6-14.4) % Plt Count (163-337) x10^3/uL MPV (9.4-12.4) fL Gran % (34.0-67.9) % Immature Gran % (Auto) (0.001-0.429) % Nucleat RBC Rel Count (0.00-0.2) % Eos # (Auto) (0.04-0.54) x10^3/uL Immature Gran # (Auto) (0.001-0.031) x10^3u/L Absolute Lymphs (auto) (1.32-3.57) x10^3/uL Absolute Monos (auto) (0.30-0.82) x10^3/uL Absolute Nucleated RBC (0.00-0.012) x10^3u/L Lymphocytes % (21.8-53.1) % Monocytes % (5.3-12.2) % Eosinophils % (0.8-7.0) % Basophils % (0.2-1.2) % Absolute Granulocytes (1.78-5.38) x10^3/uL Basophils # (0.01-0.08) x10^3/uL PT 10.5 (9.4-12.5) SECONDS INR 0.94 (0.8-3.0) Sodium (135-145) mmol/L Potassium (3.5-5.1) mmol/L Chloride (98-107) mmol/L Carbon Dioxide (22-30) mmol/L Anion Gap (5-15) MEQ/L BUN (9-20) mg/dL Creatinine (0.66-1.25) mg/dL Estimated GFR ML/MIN Glucose (74-106) mg/dL Calcium (8.4-10.2) mg/dL Total Bilirubin (0.2-1.3) mg/dL AST (17-59) U/L ALT (0-50) U/L Alkaline Phosphatase (38-126) U/L Serum Total Protein (6.3-8.2) g/dL Albumin (3.5-5.0) g/dL Urine Color Yellow (Yellow) Urine Appearance Clear (Clear) Urine pH 5.5 (4.6-8.0) Ur Specific Snover 1.010 (1.005-1.030) Urine Protein Negative (Negative) Urine Glucose (UA) >=1000 A (Negative) mg/dL Urine Ketones Negative (Negative) Urine Blood Negative (Negative) Urine Nitrite Negative (Negative) Urine Bilirubin Negative (Negative) Urine Urobilinogen 0.2 (0.2) mg/dL Ur Leukocyte Esterase Negative (Negative) U Hyaline Cast (Auto) NONE SEEN (0-2) /LPF Urine Microscopic RBC 0-2 (0-5) /HPF Urine Microscopic WBC 0-2 (0-5) /HPF Ur Epithelial Cells None Seen (None Seen) /HPF Urine Bacteria None Seen (None Seen) /HPF Urine Culture Reflexed NO (NO) ABO Group O Rh Factor NEGATIVE Antibody Screen NEGATIVE (NEGATIVE) Crossmatch COMPATIBLE (COMPATIBLE) 12/03/24 12/03/24 Range/Units 18:00 18:00 WBC 9.1 H (4.23-9.07) x10^3/uL RBC 3.14 L (4.63-6.08) x10^6/uL Hgb 9.1 L (13.7-17.5) g/dL Hct 28.1 L (40.1-51.0) % MCV 89.5 (79.0-92.2) fL MCH 29.0 (25.7-32.2) pg MCHC 32.4 (32.3-36.5) g/dL RDW 14.3 (11.6-14.4) % Plt Count 348 H (163-337) x10^3/uL MPV 10.3 (9.4-12.4) fL Gran % 58.4 (34.0-67.9) % Immature Gran % (Auto) 0.5 H (0.001-0.429) % Nucleat RBC Rel Count 0.0 (0.00-0.2) % Eos # (Auto) 0.36 (0.04-0.54) x10^3/uL Immature Gran # (Auto) 0.05 H (0.001-0.031) x10^3u/L Absolute Lymphs (auto) 2.50 (1.32-3.57) x10^3/uL Absolute Monos (auto) 0.78 (0.30-0.82) x10^3/uL Absolute Nucleated RBC 0.00 (0.00-0.012) x10^3u/L Lymphocytes % 27.4 (21.8-53.1) % Monocytes % 8.6 (5.3-12.2) % Eosinophils % 4.0 (0.8-7.0) % Basophils % 1.1 (0.2-1.2) % Absolute Granulocytes 5.32 (1.78-5.38) x10^3/uL Basophils # 0.10 H (0.01-0.08) x10^3/uL PT (9.4-12.5) SECONDS INR (0.8-3.0) Sodium 131 L (135-145) mmol/L Potassium 3.9 (3.5-5.1) mmol/L Chloride 99 (98-107) mmol/L Carbon Dioxide 20 L (22-30) mmol/L Anion Gap 17.1 H (5-15) MEQ/L BUN 18 (9-20) mg/dL Creatinine 1.18 (0.66-1.25) mg/dL Estimated GFR 65.2 ML/MIN Glucose 108 H (74-106) mg/dL Calcium 9.3 (8.4-10.2) mg/dL Total Bilirubin 0.30 (0.2-1.3) mg/dL AST 36 (17-59) U/L ALT 39 (0-50) U/L Alkaline Phosphatase 40 (38-126) U/L Serum Total Protein 7.2 (6.3-8.2) g/dL Albumin 4.3 (3.5-5.0) g/dL Urine Color (Yellow) Urine Appearance (Clear) Urine pH (4.6-8.0) Ur Specific Snover (1.005-1.030) Urine Protein (Negative) Urine Glucose (UA) (Negative) mg/dL Urine Ketones (Negative) Urine Blood (Negative) Urine Nitrite (Negative) Urine Bilirubin (Negative) Urine Urobilinogen (0.2) mg/dL Ur Leukocyte Esterase (Negative) U Hyaline Cast (Auto) (0-2) /LPF Urine Microscopic RBC (0-5) /HPF Urine Microscopic WBC (0-5) /HPF Ur Epithelial Cells (None Seen) /HPF Urine Bacteria (None Seen) /HPF Urine Culture Reflexed (NO) ABO Group Rh Factor Antibody Screen (NEGATIVE) Crossmatch (COMPATIBLE) - Progress Progress: improved, re-examined Progress Note: 12/03/24 19:32 My medical decision making and the assignment of moderate complexity of this patient's medical issue today is based on review of the patient's past medical history, reviewed patient's medication list, reviewed patient drug allergy list, history present illness and physical findings on examination. The workup today includes placement of intravenous line, CBC, CMP, PTT/INR, twelve-lead EKG, urinalysis. Differential diagnosis includes but is not limited to arrhythmia, urinary tract infection, dehydration, symptomatic anemia. I interpreted the patient's laboratory data results. Based on laboratory data results, and in combination with the patient's spouse history, the patient's hemoglobin dropped within the last week from 13.5-9.1 on this afternoon/early evening blood draw. Patient has become more symptomatic in the last week. He has not noticed any active bleeding. He specifically states he gets dizzy and weak when walking only a short distance. I looked back at his lab work and his hemoglobin level normally runs around 13-13.7. Ordinarily, I would not transfer use packed red blood cells in patients unless they had a hemoglobin less than 8. However, this patient has a history of having symptoms hemoglobin of 13.5 with a sudden, significant drop. He has also significantly symptomatic. The patient, his spouse and myself had a discussion and we will provide him with 1 unit of packed red blood cells. We have no other obvious cause of his weakness and dizziness over the last week. After his transfusion, if his vital signs are stable, we will discharge him to home with instructions to follow-up in the [facility] lab on the morning of 12/05/2024 to repeat his hemoglobin level. 12/03/24 22:26 I reexamined the patient after the unit of blood transfusion. He states his dizziness has significantly improved. He is walking around in the patient room and states his weakness is also improved. His systolic blood pressure has improved as well. 12/03/24 22:[address] scan of the head without contrast was interpreted by the radiologist and I reviewed the impression. The impression states when compared to similar study dated 08/17/2022, the current CT scan without contrast shows nonacute, senile brain with remote lacunar infarct of the right external capsule. Counseled pt/family regarding: lab results, diagnosis, need for follow-up, rad results Medical Desision Making - Independent Historian Additional History obtained from: Spouse - Diagnostic Testing Diagnostic test were ordered, analyzed, and reviewed by me: Yes Radiological Interpretation: Reviewed by me, Teleradiologist Report - Risk of complications Low Risk: Low risk of morbidity from additional dx testing or treatment - Departure Departure Disposition: Home Clinical Impression: Symptomatic anemia, Weakness, Dizziness Condition: Stable Critical Care Time: No Referrals: JANAK POWERS MD [Primary Care Provider, [facility]] - Follow up/PCP as directed Additional Instructions: Hold your Plavix and etodolac medication. You may restart those medications on 12/06/2024. Call your primary care provider/prescriber on 12/06/2024 in the morning, in order to obtain a follow-up , Sundays lab results and further instructions.
[2024-12-03 18:28] LABS: BASOPHIL % 1.1 % (0.2-1.2); Basophil (Absolute #) 0.10 x10^3/uL (0.01-0.08); Eosinophil (Absolute #) 0.36 x10^3/uL (0.04-0.54); Hematocrit 28.1 % (40.1-51.0); Hemoglobin 9.1 g/dL (13.7-17.5); IMMATURE GRAN # 0.05 x10^3u/L (0.001-0.031); IMMATURE GRAN % 0.5 % (0.001-0.429); Lymphocyte (Absolute #) 2.50 x10^3/uL (1.32-3.57); Mean Corpuscular Hemoglobin 29.0 pg (25.7-32.2); Mean Corpuscular Hgb Concent. 32.4 g/dL (32.3-36.5); Monocyte (Absolute #) 0.78 x10^3/uL (0.30-0.82); NUCLEATED RBC # 0.00 x10^3u/L (0.00-0.012); NUCLEATED RBC % 0.0 % (0.00-0.2); Platelet Count 348 x10^3/uL (163-337); Red Blood Count 3.14 x10^6/uL (4.63-6.08); White Blood Count 9.1 x10^3/uL (4.23-9.07)
[2024-12-03 18:42] LABS: PROTIME 10.5 SECONDS (9.4-12.5)
[2024-12-03 18:43] LABS: Calcium 9.3 mg/dL (8.4-10.2); Carbon Dioxide 20.0 mmol/L (22-30); Creatinine 1 1.18 mg/dL (0.66-1.25); EST GLOMERULAR FILTRATION RATE 65.2 ML/MIN; Glucose 108.0 mg/dL (74-106); INR 0.94 (0.8-3.0); Potassium 3.9 mmol/L (3.5-5.1); SGOT/AST 36.0 U/L (17-59); SGPT/ALT 39.0 U/L (0-50); Total Protein 7.2 g/dL (6.3-8.2)
[2024-12-03] MEDS: Hydromorphone 1 mg/ml Injection IM ONE (19:22)
[2024-12-03] MEDS: ZOFRAN ODT 4 MG PO ONE (19:22)
[2024-12-03 20:17] LABS: Glucose, Urine >=1000 mg/dL (Negative); Protein,Urine Dip Negative (Negative); RBC 0-2 /HPF (0-5); WBC 0-2 /HPF (0-5)
[2024-12-03 20:46] LABS: ABO TYPING O; RH TYPING NEGATIVE
[2024-12-03 20:48] LABS: CROSS MATCH (PRBC) COMPATIBLE (COMPATIBLE)
[2024-12-03 22:50] VITALS: BP 130/88; PULSE 74; RESP 19; O2SAT 95
--- NOTE | 2024-12-04 07:31 | XRAY ---
Indication: Dizziness. Multiple contiguous axial images obtained through the head without contrast. Comparison: August 17, 2022. Again age-appropriate global atrophy, moderate periventricular degenerative micro-ischemia bilaterally, and remote lacunar infarct right external capsule. No acute intracranial hemorrhage, abnormal extra-axial fluid collection, or mass effect. Fourth ventricle is midline without hydrocephalus. Bony calvarium intact. Visualized paranasal sinuses and mastoid air cells are clear. Again prosthetic right orbit. Impression: Continued nonacute senile brain with remote lacunar infarct right external capsule.
== END 2024-12-03 22:45 | disposition home or self-care (01) ==
LOC: ED 17:11
DX: D64.9 Anemia, unspecified (principal); R53.1 Weakness; R42 Dizziness and giddiness; I10 Essential (primary) hypertension; E11.9 Type 2 diabetes mellitus without complications; Z79.02 Long term (current) use of antithrombotics/antiplatelets; Z79.84 Long term (current) use of oral hypoglycemic drugs; Z79.85 Long-term (current) use of injectable non-insulin antidiabetic drugs; Z79.899 Other long term (current) drug therapy